=== PATIENT | female | born 1985 | race Caucasian/White ===

== ENCOUNTER 2024-09-28 12:06 | Outpatient (CLI) | payer SELFPAY ==
--- NOTE | 2024-09-28 12:18 | US_ITS ---
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 Uterus: 8.5 cm x 5.1 cm x 4.5 cm. Normal size anteverted uterus. No fibroid or mass. Endometrium: 0.7 cm. Early secretory phase of the endometrium. Trilaminar appearance is is absent. Right ovary: 1.8 cm x 1.6 cm x 1.7 cm. Normal size ovary. Largest follicle is 0.7 cm. There are a few small follicles which are all less than a centimeter. Normal vascularity. Left ovary: 1.4 cm x 2.0 cm x 1.7 cm. Normal size ovary. Largest follicle is 0.8 cm. There are few additional follicles which are less than a centimeter. Number of follicles estimated near 7. No free fluid in the cul-de-sac. US/US transvaginal [id number] IMPRESSION: 1. Early secretory phase of the endometrium. 2. Largest ovarian follicle 0.8 cm LEFT ovary.
[2024-09-28 13:49] LABS: Estradiol 177.5 pg/mL; Progesterone 0.059 ng/mL
== END 2024-09-28 12:07 | disposition home or self-care (01) ==
LOC: RAD 12:12
PROVIDERS: PCP Obstetrics & Gynecology Obstetrics; Visit Provider Nurse Practitioner
DX: Z31.7 Encounter for procreative management and counseling for gestational carrier (principal); R93.89 Abnormal findings on diagnostic imaging of other specified body structures
CPT/HCPCS: 36415; 76830; 82670; 84144

== ENCOUNTER 2024-10-05 13:13 | Outpatient (CLI) | payer SELFPAY ==
--- NOTE | 2024-10-05 13:19 | USR_ITS ---
PROCEDURE INFORMATION: Exam: US Pelvis, Transvaginal, Non-Obstetric Exam date and time: 10/05/2024 2:09 PM Age: 39 years old Clinical indication: Screening exam; Assess endometrial thickness; Additional info: Assess endometrial thickness appearance TECHNIQUE: Imaging protocol: Real-time transvaginal pelvic (non-obstetric) ultrasound with image documentation. Transvaginal imaging was used for better evaluation of the endometrium, adnexa, and/or cervix. COMPARISON: US transvaginal [id number] 09/28/2024 12:59 PM FINDINGS: Uterus: Uterus is normal. The endometrium is normal thickness measuring about 10 mm. Right ovary/adnexa: Normal. No mass. Several small right ovarian follicles. Normal ovarian blood flow on color Doppler. Left ovary/adnexa: Normal. No mass. Several small left ovarian follicles. Venous flow detected to the left ovary. Arterial flow not clearly demonstrated but likely artifactual. Urinary bladder: Urinary bladder is limited. Intraperitoneal space: No free fluid. US/US transvaginal [id number] IMPRESSION: 1. The endometrium is of normal thickness measuring about 10 mm. 2. Multiple small bilateral ovarian follicles, approximately 4-6 follicles on each side.
[2024-10-05 14:29] LABS: Estradiol 260.6 pg/mL; Progesterone 0.137 ng/mL
== END 2024-10-05 13:14 | disposition home or self-care (01) ==
PROVIDERS: PCP Obstetrics & Gynecology Obstetrics; Visit Provider Nurse Practitioner
DX: Z31.7 Encounter for procreative management and counseling for gestational carrier (principal); R93.89 Abnormal findings on diagnostic imaging of other specified body structures
CPT/HCPCS: 36415; 76830; 82670; 84144

== ENCOUNTER 2024-11-21 16:18 | Outpatient (CLI) | payer BC, SELFPAY ==
--- NOTE | 2024-11-21 16:46 | US_ITS ---
WS: [id number] EARLY OBSTETRICAL ULTRASOUND (<14 WEEKS). HISTORY: VIABILITY COMPARISON: None available. Single intrauterine gestational sac is identified. Cardiac activity at 187 BPM. [place]-rump length measures 1.6 cm which corresponds to a gestation of 8w0d. Normal-appearing yolk sac and amnion demonstrated. No subchorionic hemorrhage. No free fluid. Neither ovary identified. No adnexal mass. Cervix is closed measuring 3.6 cm in length. US/US OB transvaginal [id number] IMPRESSION: 1. Single intrauterine gestation of 8w0d with an EDC of 07/03/2025. 2. Normal cardiac activity.
== END 2024-11-21 16:19 | disposition home or self-care (01) ==
PROVIDERS: PCP Obstetrics & Gynecology Obstetrics
DX: Z31.7 Encounter for procreative management and counseling for gestational carrier (principal); Z3A.08 8 weeks gestation of pregnancy
CPT/HCPCS: 76817